=== PATIENT | female | born 1970 | race Caucasian/White ===

== ENCOUNTER 2021-08-10 14:22 | Emergency (ER) | payer OTHER, SELFPAY ==
--- NOTE | ~2021-08-10 | XR_ITS ---
EXAMINATION: XR chest 1V portable EXAM DATE: 08/10/2021 16:22 INDICATION: SOB, body aches, chills, cough. Symptoms 10 days. TECHNIQUE: Portable AP frontal chest x-ray was obtained. There is no prior study for comparison. FINDINGS: Small amount of left basilar atelectasis or pneumonia. The lungs are otherwise clear. Ther e are no pleural effusions. The cardiomediastinal silhouette is within normal limits. There is no p neumothorax suspected. The bones and soft tissues are unremarkable. IMPRESSION: Small amount of left basilar atelectasis or pneumonia. Reviewed, dictated and finalized at location A. WORKER
[2021-08-10 14:27] VITALS: BP 136/85; PULSE 103; RESP 17; TEMP 36.4; O2SAT 100
--- NOTE | 2021-08-10 15:49 | ED.GENADULT ---
HPI - General Adult General Chief complaint: Unspecified Stated complaint: weakness, chills Time Seen by Provider: 08/10/21 15:15 Source: patient and RN notes reviewed Limitations: no limitations History of Present Illness HPI narrative: 50-year-old female present to the emergency department for evaluation of 10 days of decreased appetite generalized weakness and fatigue. Patient states she is not vaccinated to COVID. Patient has not had any COVID testing. Patient has been taking Tylenol for her symptoms. Patient does report decreased appetite and nausea with no vomiting. Patient does have some exertional fatigue but denies any chest pain. Patient denies any abdominal pain. Related Data Allergies Allergy/AdvReac Type Severity Reaction Status Date / Time No Known Allergies Allergy Verified 08/10/21 17:04 Review of Systems Review of Systems: CONSTITUTIONAL: Chills and subjective fever. EYES: Denies visual changes, redness, or discharge. ENT: Denies rhinorrhea, congestion, sore throat, or otalgia. CARDIOVASCULAR: Denies chest pain, palpitations, or edema. RESPIRATORY: Cough and shortness of breath GASTROINTESTINAL: Denies abdominal pain but does report nausea and decreased appetite. GENITOURINARY: Denies dysuria or hematuria. SKIN: Denies rash or itching. MUSCULOSKELETAL: Denies back pain, joint pain. Does report myalgia NEUROLOGIC: Denies headache, numbness, or weakness. PSYCHIATRIC: Denies anxiety or depression. Exam Narrative: APPEARANCE: Well appearing, no pain in distress, well-nourished. HEAD: normocephalic, atraumatic. EYES: PERRLA/EOMI, conjunctivae clear. NOSE: Normal no drainage EARS:TMS clear with good light reflex. THROAT: Pharynx clear, no exudate. NECK: Supple. No adenopathy, no masses. RESPIRATORY: Airway patent, respirations nonlabored. Clear to auscultation bilaterally, no rales, rhonchi, wheezing. CARDIOVASCULAR: Regular rate and rhythm without murmurs rubs or gallops. ABDOMINAL: Soft, nontender, nondistended, normal bowel sounds MUSCULOSKELETAL: Moves all extremities. Strength/ROM intact, No edema, No calf tenderness. NEURO: Alert. Cranial nerves II through XII intact. Good gait. Good coordination SKIN: Warm, dry. Normal Color PSYCHIATRIC: Normal affect/mood. Course Course Emergency Course: Patient's COVID test is still pending. Patient's x-ray was read as pneumonia so patient was treated with antibiotics just in case this is not a viral pneumonia. Patient also shows evidence of urinary tract infection so she was started on antibiotics for that. Patient was also treated with 1 L of normal saline. Patient was a bit on the results of her work-up. All questions concerns were addressed. Patient was clinically stable in no distress at time of discharge from the emergency department Vital Signs Vital signs: Vital Signs Temperature 97.6 F 08/10/21 14:27 Pulse Rate 103 H 08/10/21 14:27 Respiratory Rate 17 08/10/21 14:27 Blood Pressure 136/85 08/10/21 14:27 Pulse Oximetry 100 08/10/21 14:27 Temperature 98.4 F 08/10/21 18:30 Pulse Rate 78 08/10/21 18:55 Respiratory Rate 14 08/10/21 18:55 Blood Pressure 125/90 08/10/21 18:55 Pulse Oximetry 99 08/10/21 18:55 Medical Decision Making Vital Signs Vital Signs: Vital Signs Temperature 97.6 F 08/10/21 14:27 Pulse Rate 103 H 08/10/21 14:27 Respiratory Rate 17 08/10/21 14:27 Blood Pressure 136/85 08/10/21 14:27 Pulse Oximetry 100 08/10/21 14:27 Temperature 98.4 F 08/10/21 18:30 Pulse Rate 78 08/10/21 18:55 Respiratory Rate 14 08/10/21 18:55 Blood Pressure 125/90 08/10/21 18:55 Pulse Oximetry 99 08/10/21 18:55 Lab Data Lab results reviewed: Yes I reviewed the patient's lab results. Labs: Lab Results 08/10/21 08/10/21 Range/Units 15:47 15:47 Urine Color [place] (Yellow) Urine Appearance Cloudy H (Clear) Urine pH 5.0 (5.0-9.0) Ur Specific [place] 1.023 (1.00
[2021-08-10 16:00] VITALS: RESP 20
[2021-08-10 16:00] LABS: Add Urine Microscopic? YES; Appearance Urine Cloudy (Clear); Bacteria Urine Trace /hpf; Bilirubin Urine Negative (Negative); Blood Urine 1+ (Negative); Color Urine Amber (Yellow); Glucose Urine UA Negative (Negative); Ketones Urine Trace mg/dL (Negative); Leukocyte Esterase Ur Negative LEU/UL (Negative); Mucus Urine Heavy /lpf; Nitrate Urine Positive (Negative); Protein Urine 1+ mg/dL (Negative); Specific Grav Ur 1.023 (1.001-1.035); Squamous Epithelial Cell Urine Many /hpf (Few); Urobilinogen Urine Negative mg/dL (<2.0)
[2021-08-10 16:27] VITALS: BP 120/80; PULSE 88; RESP 14; O2SAT 100
[2021-08-10] MEDS: SODIUM CHLORIDE 0.9% IV 1,000 ML 999 ML IV CONT (17:00)
[2021-08-10 17:03] VITALS: BP 132/92; PULSE 78; RESP 14; O2SAT 95
[2021-08-10 18:30] VITALS: BP 134/97; PULSE 81; RESP 14; TEMP 36.9; O2SAT 99
[2021-08-10 18:55] VITALS: BP 125/90; PULSE 78; RESP 14; O2SAT 99
[2021-08-12 18:18] LABS: SARS-CoV-2 RNA PCR Positive
== END 2021-08-10 18:55 | disposition home or self-care (01) ==
PROVIDERS: Emergency Provider Emergency Medicine
DX: U07.1 COVID-19 (principal); J18.9 Pneumonia, unspecified organism; N39.0 Urinary tract infection, site not specified
CPT/HCPCS: 71045; 81001; 87077; 87086; 87088; 87186; 87804; 96365; 96367; 99284; C9803; J0456; J0696; J7030; U0003; U0005